=== PATIENT | male | born 1965 | race Hispanic/Latino ===

== ENCOUNTER 2018-10-23 09:36 | Inpatient (IN) | payer SELFPAY ==
[2018-10-23 10:19] LABS: #Basophils 0.1 thou/uL (0.0-0.2); #Eosinphils 0.2 thou/uL (0.0-0.7); #Lymphocytes 1.3 thou/uL (1.20-3.40); #Monocytes 0.3 thou/uL (0.11-0.59); #Neutrophils 5.1 thou/uL (1.40-6.50); %Basophils 1.1 % (0.0-1.0); %Eosinophils 2.8 % (0.0-10.0); %Lymphocytes 18.4 % (21.0-51.0); %Monocytes 4.4 % (0.0-10.0); %Neutrophils 73.5 % (42.0-75.0); Hemoglobin 11.7 g/dL (14.0-18.0); Mean Corpuscular HGB CONC 33.2 g/dL (32.0-36.0); Mean Corpuscular Hemoglobin 28.4 pg (27.0-31.0); Mean Corpuscular Volume 85.3 fL (78.0-98.0); Mean Platelet Volume 8.9 fL (7.4-10.4); Platelet Count 344 thou/uL (130-400); RBC Distribution Width 11.5 % (11.5-14.5); Red Blood Cell (RBC) Count 4.12 mill/uL (4.70-6.10)
[2018-10-23 10:43] LABS: ALT (SGPT) 12 U/L (8-55); AST (SGOT) 15 U/L (5-34); Albumin 1.9 g/dL (3.5-5.0); Alkaline Phosphatase 159 U/L (40-150); Anion Gap 9 mmol/L (10-20); BUN (Urea Nitrogen) 59 mg/dL (8.4-25.7); Bilirubin, Total 0.2 mg/dL (0.2-1.2); Calc. Creatinine Clearance 0 mL/min (70-130); Calcium 8.1 mg/dL (7.8-10.44); Carbon Dioxide 25 mmol/L (22-29); Chloride 89 mmol/L (98-107); Estimated GFR-MDRD 18; Lipase 69 U/L (8-78); Potassium 3.4 mmol/L (3.5-5.1); Protein, Total 5.9 g/dL (6.0-8.3); Sodium 120 mmol/L (136-145)
--- NOTE | 2018-10-23 10:44 | RAD ---
PORTABLE CHEST 1 VIEW: Date: 10/23/18 Time: 1010 hours HISTORY: Bilateral feet swelling. FINDINGS: The cardiomediastinum is normal. The lungs are expanded and clear. Bony thorax unremarkable. IMPRESSION: Normal exam. POS: C
[2018-10-23 10:57] LABS: Glucose 822 mg/dL (70-105)
[2018-10-23 11:19] LABS: Base Excess-Venous -2.7 mmol/L (0 (+/- 2.5)); Bicarbonate (HCO3v) 24.1 mmol/L (22.0-29.0); CO2 Tension (PvCO2) 49.3 mmHg (41.0-51.0); Calcium, Ionized 1.11 mmol/L (1.12-1.32); Hemoglobin - Calc 12.4 g/dL (12.0-18.0); O2 Tension (PvO2) 30.4 mmHg (35.0-45.0); Potassium 3.5 mmol/L (3.4-4.7); T. Carbon Dioxide 25.6 mmol/L (1.0-85.0); pH (Venous) 7.298 (7.35-7.45); vO2 Saturation-calc 50.9 % (94-98)
[2018-10-23] MEDS ORDERED: HUMULIN R 100 UNITS in Sodium Chloride 0.9% 100 ML IVPB SCH ×2 (11:45→12:15)
[2018-10-23] MEDS ORDERED: Ondansetron ODT 4 MG TAB PO PRN (12:06)
[2018-10-23] MEDS ORDERED: Senokot S 8.6-50 MG TAB PO PRN (12:06)
[2018-10-23] MEDS ORDERED: CCU Electrolyte Replacement 1 EACH IVPB ONE (12:06)
[2018-10-23] MEDS ORDERED: Guaifenesin DM 100-10/5 ML UDCUP PO PRN (12:06)
[2018-10-23] MEDS ORDERED: Sodium Chloride 0.9% 1,000 ML IV PRN ×4 (12:06)
[2018-10-23] MEDS ORDERED: Dextrose 5 %-0.45 % NaCl 1,000 ML IV PRN (12:06)
[2018-10-23] MEDS ORDERED: Acetaminophen 325 MG TAB PO PRN (12:06)
[2018-10-23] MEDS ORDERED: Ondansetron PF 4 MG/2 ML Vial IVP PRN (12:06)
[2018-10-23] MEDS ORDERED: NS 0.9% w/ 20 MEQ KCL 1,000 ML IV PRN ×2 (12:06)
[2018-10-23] MEDS ORDERED: Magnesium Oxide 400 MG TAB PO PRN ×2 (12:55)
[2018-10-23] MEDS ORDERED: CCU ELECTROLYTE REPLACEMENT PROTOCOL FS PRN (12:55)
[2018-10-23] MEDS ORDERED: Potassium Chloride 40 MEQ in Sodium Chloride 0.9% 250 ML 250 ML IVPB PRN (12:55)
[2018-10-23] MEDS ORDERED: Magnesium 2 GM/NS 0.9% 100 ML 2 GM in Premix Bag 1 BAG IVPB PRN (12:55)
[2018-10-23] MEDS ORDERED: Potassium Phosphate 12 MMOL in Sodium Chloride 0.9% 250 ML 250 ML IV PRN (12:55)
[2018-10-23] MEDS ORDERED: Potassium Chloride 40 MEQ in Premix Bag 1 BAG IVPB PRN (12:55)
[2018-10-23] MEDS ORDERED: Potassium Phosphate 15 MMOL in Sodium Chloride 0.9% 250 ML 250 ML IV PRN (12:55)
[2018-10-23] MEDS ORDERED: Potassium Phosphate 9 MMOL in Sodium Chloride 0.9% 100 ML IVPB PRN (12:55)
--- NOTE | 2018-10-23 13:30 | HP ---
REASON FOR ADMISSION: DKA, acute kidney injury, hypoalbuminemia. HISTORY OF PRESENTING ILLNESS: The patient initially came to ER with complaints of lower extremity edema which has been progressively getting worse from last 3 weeks. He was incidentally found to have had serum sugars of 822 and was in DKA. Has no complaints of diarrhea, nausea, or vomiting. No complaints of shortness of breath. Has no chest pain or palpitation. No cough or expectoration. No history of fever. The patient states he has been hospitalized twice here for something similar, but there are no records of the same here. Likely, the patient has another name. Ethiopian translation service was used to communicate with patient. PAST MEDICAL AND SURGICAL HISTORY: Diabetes mellitus from last 11 years, likely type 1, chronic kidney disease, hypertension. He seems to have pulmonary problem, but is unable to say whether it is asthma or COPD. CURRENT MEDICATIONS: 1. Nebivolol with valsartan 5/80 mg daily. 2. Sliding scale insulin. 3. Hydrochlorothiazide 25 mg daily. ALLERGIES: NO KNOWN DRUG ALLERGIES. PERSONAL HISTORY: Does not abuse alcohol or drugs. No history of smoking. FAMILY HISTORY: Mother at the age of 32. He does not know the exact cause , but she had severe pain secondary to something that he is not aware of. Father of a freak accident with trauma at the age of 35 years. The patient is from [facility] and his is in his home country. He is currently living with his friends here. CODE STATUS: Full. REVIEW OF SYSTEMS: CONSTITUTIONAL: Negative for weight loss or gain, ability to conduct usual activities. SKIN: Negative for rash, itching. EYES: Negative for double vision, pain. ENT/MOUTH: Negative for nose bleeding, neck stiffness, pain, tenderness. CARDIOVASCULAR: Negative for palpitations, dyspnea on exertion, orthopnea. RESPIRATORY: Negative for shortness of breath, wheezing, cough, hemoptysis, fever or night sweats. GASTROINTESTINAL: Negative for poor appetite, abdominal pain, heartburn, nausea , vomiting, constipation, or diarrhea. GENITOURINARY: Negative for urgency, frequency, dysuria, nocturia. MUSCULOSKELETAL: Negative for pain, swelling. NEUROLOGIC/PSYCHIATRIC: Negative for anxiety, depression. ALLERGY/IMMUNOLOGIC: Negative for skin rash, bleeding tendency. PHYSICAL EXAMINATION: GENERAL: The patient is a 52-year-old male, who is currently not in any acute distress. VITAL SIGNS: Blood pressure 136/64, pulse 84 per minute, respiratory rate 18 per minute, temperature 97.6 degrees Fahrenheit, saturating 98% on room air. NECK: Supple. No elevated JVD. HEENT: Eyes; extraocular muscles intact. Pupils reacting to light. Oral cavity, mucous membranes are dry. No exudates or congestion. CARDIOVASCULAR: S1, S2 heard. Regular rhythm. RESPIRATORY: Air entry 1+ bilateral. No rales or rhonchi. ABDOMEN: Soft. Bowel sounds heard. No tenderness, rigidity, or guarding. EXTREMITIES: There is 2+ peripheral edema up to the knees. No calf tenderness. VASCULAR: Peripheral pulses 1+ bilateral. No ischemic ulcerations or gangrene. CENTRAL NERVOUS SYSTEM: No gross focal deficits noted. The patient is alert, awake, and oriented well. PSYCHIATRIC: The patient's mood is euthymic. No hallucinations or delusions. LABORATORY DATA: Chest x-ray done shows no acute cardiopulmonary abnormality. Serum glucose is 822, sodium 122, potassium 3.5, serum bicarb 25, BUN 59, creatinine 3.6, magnesium is 2.3. AST, ALT within normal limits. Alkaline phosphatase is 159, total bilirubin 0.2, albumin is 1.9, globulin is 4.0, lipase is 69, beta-hydroxybutyrate is 0.17. White count of 7, H and H 11 and 35, platelet count 344, with 73% neutrophils. Venous blood gas done shows a pH of 7.29 with bicarb of 24. CLINICAL IMPRESSION AND PLAN: The patient will be admitted to [facility] for mild diabetic ketoacidosis. He will be on diabetic ketoacidosis protocol. He is currently started on IV insulin and we will titrate this based on the protocol. The patient likely has acute kidney injury on top of his chronic kidney disease. Also, he has albumin/globulin ratio reversed. He is not aware of any autoimmune disease or infectious disease that he has. We will obtain acute hepatitis panel, HIV 1 and 2. Ultrasound kidneys. AMARILYS with reflex, C3, C4 levels and SPEP and UPEP. A Nephrology consultation with Dr. Carl Lopez, will be requested. Job ID: [id number] [facility]
[2018-10-23 13:41] LABS: Anion Gap 16 mmol/L (10-20); BUN (Urea Nitrogen) 57 mg/dL (8.4-25.7); Calc. Creatinine Clearance 0 mL/min (70-130); Calcium 7.8 mg/dL (7.8-10.44); Carbon Dioxide 15 mmol/L (22-29); Chloride 95 mmol/L (98-107); Estimated GFR-MDRD 19; Potassium 3.7 mmol/L (3.5-5.1); Sodium 122 mmol/L (136-145)
[2018-10-23 13:46] LABS: Glucose 743 mg/dL (70-105)
[2018-10-23 14:14] LABS: HBCM Index 0.05 S/CO (0-0.79); HBSAg Index 0.24 S/CO (0-0.99); HIV (1/2) Antibody/Antigen Non-Reactive (NonReactive); HIV 1/2 INDEX 0.05 S/CO (<1.00); Hep A IgM AB Non-Reactive (NonReactive); Hep A IgM S/CO 0.11 S/CO (0-0.79); Hep B Surf Ag Non-Reactive S/CO (NonReactive); Hep C IgG Ab Non-Reactive (NonReactive); Hep C Index 0.06 S/CO (0-0.79); Hepatitis B Core IgM Abs Non-Reactive (NonReactive)
--- NOTE | 2018-10-23 14:27 | ULT ---
BILATERAL RENAL ULTRASOUND COMPLETE: History: Acute kidney insufficiency. Chronic kidney disease. FINDINGS: Right kidney measures 11.4 x 6.1 x 5.9 cm. Left kidney measures 10.2 x 6.2 x 5.8 cm. There is no renal hydronephrosis. The urinary bladder appears unremarkable. IMPRESSION: Unremarkable bilateral renal ultrasound. POS: [facility]
[2018-10-23 17:08] LABS: Anion Gap 15 mmol/L (10-20); BUN (Urea Nitrogen) 56 mg/dL (8.4-25.7); Calc. Creatinine Clearance 0 mL/min (70-130); Calcium 8.1 mg/dL (7.8-10.44); Carbon Dioxide 19 mmol/L (22-29); Chloride 100 mmol/L (98-107); Estimated GFR-MDRD 21; Glucose 319 mg/dL (70-105); Potassium 3.5 mmol/L (3.5-5.1); Sodium 130 mmol/L (136-145)
[2018-10-23] MEDS: D5 1/2 NS w/20 mEq KCL 1,000 ML IV PRN ×2 (18:20→21:02)
[2018-10-23 18:37] VITALS: BMI 23.2
[2018-10-23 20:53] LABS: Anion Gap 12 mmol/L (10-20); BUN (Urea Nitrogen) 52 mg/dL (8.4-25.7); Calc. Creatinine Clearance 32 mL/min (70-130); Calcium 7.7 mg/dL (7.8-10.44); Carbon Dioxide 21 mmol/L (22-29); Chloride 102 mmol/L (98-107); Estimated GFR-MDRD 24; Glucose 131 mg/dL (70-105); Sodium 132 mmol/L (136-145)
[2018-10-23 22:31] LABS: Creatinine, Urine 36.65 mg/dL (63-166)
[2018-10-24] MEDS: Potassium Chloride 20 MEQ TAB PO PRN ×2 (00:59→05:16)
[2018-10-24] MEDS: D5 1/2 NS w/20 mEq KCL 1,000 ML IV PRN ×3 (01:01→09:24)
--- NOTE | 2018-10-24 01:12 | CON ---
DATE OF CONSULTATION: CONSULTING PHYSICIAN: Carl Lopez MD REQUESTING PHYSICIAN: Erin Spivey MD REASON FOR CONSULTATION: Acute on chronic kidney disease. IMPRESSION: 1. Acute on chronic kidney disease. This is likely in the context of intravascular depletion due to diabetic ketoacidosis on a baseline. 2. 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 3. Diabetic ketoacidosis. PLAN: 1. We will rehydrate this patient based on DKA protocol. 2. Renally dose all medications and avoid potentially nephrotoxic agents. 3. We will get spot urine protein and creatinine to evaluate the degree of proteinuria in this patient. 4. Hyponatremia is likely pseudohyponatremia in the context of severe hyperglycemia. 5. Further management will be dependent on the clinical course. No emergent indication at this point for renal replacement therapy. HISTORY OF PRESENT ILLNESS: A 52-year-old gentleman with moderately advanced chronic kidney disease, diabetes mellitus, query the adequacy of treatment, who presented here with complaint of lower extremity edema which has been getting worse over the past 3 weeks. The patient, however, seems to have been feeling ill for the past 3 to 4 months. Denies any nausea, vomiting, or diarrhea. No shortness of breath. On presentation, the patient was noted with severely elevated blood sugar of above 700 with metabolic acidosis, but no hyperkalemia and elevated creatinine. As a result of these findings, decision was taken to involve Renal in the management of this case. PAST MEDICAL HISTORY: Significant for diabetes, hypertension, advanced chronic kidney disease likely stage 3/stage 4. ALLERGIES: NO KNOWN DRUG ALLERGIES. FAMILY HISTORY: No family history of kidney disease. SOCIAL HISTORY: Remote alcohol use, but no tobacco or illicit drug use. REVIEW OF SYSTEMS: As documented in the body of history. All the other systems were reviewed and found not to be significantly related to presenting illness. LABORATORY INVESTIGATION: Significant for sodium 122, creatinine 3.36 with a BUN of 57, bicarb of 15. PHYSICAL EXAMINATION: GENERAL: The patient was found not to be in any obvious distress, hemodynamically stable. HEENT: Unremarkable. Moist oral mucosa. NECK: Supple. No conjunctival injection or icterus. CARDIOVASCULAR SYSTEM: First and second heart sounds were heard. RESPIRATORY SYSTEM: Clear to auscultation. DIGESTIVE SYSTEM: Revealed a benign abdomen with positive bowel sounds. EXTREMITIES: No peripheral edema. SKIN: No new gross rash. LYMPHATICS: No peripheral lymphadenopathy. EXTREMITIES: Showed 2+ bilateral lower extremity edema. NEUROLOGIC: Alert and oriented. No lateralizing sign. SUMMARY: A 52-year-old gentleman with advanced chronic kidney disease in the context of likely diabetic nephropathy, who presented here with severely elevated blood sugar and diabetic ketoacidosis. Thank you for this consultation. We will follow with you. Job ID: [id number]
[2018-10-24 05:09] LABS: Anion Gap 8 mmol/L (10-20); BUN (Urea Nitrogen) 48 mg/dL (8.4-25.7); Calc. Creatinine Clearance 33 mL/min (70-130); Calcium 7.6 mg/dL (7.8-10.44); Carbon Dioxide 18 mmol/L (22-29); Chloride 100 mmol/L (98-107); Estimated GFR-MDRD 25; Glucose 161 mg/dL (70-105); Phosphorus 3.4 mg/dL (2.3-4.7); Sodium 123 mmol/L (136-145)
[2018-10-24 05:10] LABS: Potassium 2.9 mmol/L (3.5-5.1)
[2018-10-24] MEDS: Enoxaparin Sodium 30 MG/0.3 ML SYRINGE SC SCH (09:24)
[2018-10-24] MEDS ORDERED: Dextrose 50% Abboject 50 ML SYRINGE SLOW IVP PRN (10:01)
[2018-10-24] MEDS ORDERED: Dextrose 5% in Water 1,000 ML IV PRN (10:01)
[2018-10-24] MEDS ORDERED: Insulin Glargine 20 UNITS in Pre-Filled Syringe 1 EACH SC SCH (10:15)
[2018-10-24 10:39] LABS: Anion Gap 10 mmol/L (10-20); BUN (Urea Nitrogen) 45 mg/dL (8.4-25.7); Calc. Creatinine Clearance 35 mL/min (70-130); Calcium 7.6 mg/dL (7.8-10.44); Carbon Dioxide 19 mmol/L (22-29); Chloride 103 mmol/L (98-107); Estimated GFR-MDRD 27; Glucose 284 mg/dL (70-105); Sodium 128 mmol/L (136-145)
[2018-10-24 10:42] LABS: Cardiac Risk 7.5 (Less than 4.5)
--- NOTE | 2018-10-24 11:14 | PDOC.PN ---
- Subjective Encounter Start Date: 10/24/18 Encounter Start Time: 11:00 Subjective: feels better, no sob or abd pain -: is watching tv - Objective Resuscitation Status - Order Detail: 10/23/18 12:02 Resuscitation Status Routine Resuscitation Status: FULL: Full Resuscitation MAR Reviewed: Yes Vital Signs & Weight: Vital Signs (12 hours) Temp Pulse Resp BP Pulse Ox 10/24/18 08:00 100 10/24/18 07:19 176/92 H 10/24/18 07:16 97.6 F 73 16 100 10/24/18 04:00 98.0 F 76 16 143/73 H 100 10/24/18 00:00 98.1 F 76 18 157/85 H 100 Weight Weight 162 lb 6.4 oz I&O: 10/23/18 10/24/18 10/25/18 06:59 06:59 06:59 Intake Total 3449 1552 Output Total 2100 500 Balance 1349 1052 Result Diagrams: 10/23/18 10:08 10/24/18 09:36 Additional Labs: Accuchecks 10/24/18 10/24/18 10/24/18 09:53 09:00 08:00 POC Glucose 280 H 282 H 180 H 10/24/18 10/24/18 10/24/18 07:07 06:11 05:10 POC Glucose 147 H 138 H 149 H 10/24/18 10/24/18 10/24/18 04:11 03:12 02:06 POC Glucose 165 H 201 H 242 H 10/24/18 10/24/18 10/23/18 00:59 00:08 23:09 POC Glucose 247 H 244 H 217 H 10/23/18 10/23/18 10/23/18 22:11 21:02 20:03 POC Glucose 189 H 124 H 127 H 10/23/18 10/23/18 10/23/18 19:21 18:04 17:23 POC Glucose 138 H 178 H 229 H 10/23/18 10/23/18 15:20 14:07 POC Glucose 528 H Greater than 550 H* Phys Exam - Physical Examination HEENT: PERRLA, moist MMs Neck: no JVD, supple Respiratory: no wheezing, no rales Cardiovascular: RRR, no significant murmur Gastrointestinal: soft, non-tender, positive bowel sounds Musculoskeletal: pulses present, edema present Neurological: non-focal, moves all 4 limbs Psychiatric: normal affect, A&O x 3 Dx/Plan (1) DKA (diabetic ketoacidosis) Code(s): E13.10 - OTH DIABETES MELLITUS WITH KETOACIDOSIS WITHOUT COMA Status : Acute Qualifiers: Diabetes mellitus type: type 2 Diabetes mellitus complication detail: without coma Qualified Code(s): E11.10 - Type 2 diabetes mellitus with ketoacidosis without coma (2) HTN (hypertension) Code(s): I10 - ESSENTIAL (PRIMARY) HYPERTENSION Status: Chronic Qualifiers: Hypertension type: essential hypertension Qualified Code(s): I10 - Essential (primary) hypertension (3) SANAZ (acute kidney injury) Code(s): N17.9 - ACUTE KIDNEY FAILURE, UNSPECIFIED Status: Acute (4) Hypoalbuminemia Code(s): E88.09 - OTH DISORDERS OF PLASMA-PROTEIN METABOLISM, NEC Status: Acute Comment: sec to kidney disease, eats healthy amount of meat (5) Hyponatremia Code(s): E87.1 - HYPO-OSMOLALITY AND HYPONATREMIA Status: Acute - Plan dc iv insulin -: lantus bid, bethany hose has not been placed on him yet -: further w/u of renal disease per nephro adv -: replace electrolytes -: add lipitor and tricor * . Review of Systems - Medications/Allergies Allergies/Adverse Reactions: Allergies Allergy/AdvReac Type Severity Reaction Status Date / Time No Known Allergies Allergy Unverified 10/23/18 11:40 Medications: Current Medications Acetaminophen (Tylenol) 650 mg PO Q4H PRN PRN Reason: Headache/Fever/Mild Pain (1-3) Atorvastatin Calcium (Lipitor) 20 mg PO HS JOSAFAT Dextrose/Water (Dextrose 50%) 25 gm SLOW IVP PRN PRN PRN Reason: Hypoglycemia Enoxaparin Sodium (Lovenox) 30 mg SC 0900 JOSAFAT Last Admin: 10/24/18 09:24 Dose: 30 mg Fenofibrate (Tricor) 48 mg PO DAILY JOSAFAT Glucagon (Glucagon) 1 mg IM PRN PRN PRN Reason: Hypoglycemia Guaifenesin/Dextromethorphan (Robitussin Dm) 15 ml PO Q4H PRN PRN Reason: Cough Dextrose/Water (D5w) 1,000 mls @ 0 mls/hr IV .Q0M PRN PRN Reason: Hypoglycemia Insulin Glargine 10 units/ (Miscellaneous Medication) 0.1 mls @ 0 mls/hr SC BID [facility] Influenza Virus Vaccine Quadrival (Fluzone Quad [id number] Syringe) 0.5 ml IM .ONCE ONE Stop: 10/24/18 21:01 Insulin Human Lispro (Humalog) 0 units SC .MODERATE SLIDING SC PRN PRN Reason: Moderate Correctional Scale Insulin Human Lispro (Humalog) 0 units SC .BEDTIME SLIDING SC PRN PRN Reason: Bedtime Correctional Scale Nebivolol (Bystolic) 5 mg PO DAILY [facility] Ondansetron HCl (Zofran Odt) 4 mg PO Q6H PRN PRN Reason: Nausea/Vomiting Ondansetron HCl (Zofran) 4 mg IVP Q6H PRN PRN Reason: Nausea/Vomiting Senna/Docusate Sodium (Senokot S) 2 tab PO BID PRN PRN Reason: Constipation
[2018-10-24] MEDS: HumaLOG 300 UNITS/3 ML VIAL SC PRN ×2 (12:23→21:23)
[2018-10-24 16:36] LABS: ANA Symphony (Qualitative) Negative (Negative); ANA Symphony (Quantitative) 0.1 Ratio (< 0.7 Negative); dsDNA IgG Antibody 0.5 IU/mL (<10 Negative)
--- NOTE | 2018-10-24 20:41 | PRG ---
DATE OF SERVICE: 10/24/2018 SUBJECTIVE: The patient is seen and examined. OBJECTIVE: VITAL SIGNS: Noted with the following vital signs; blood pressure 158/90, pulse of 82, respiratory rate of 18. HEENT: Unremarkable. Moist oral mucosa. NECK: Supple. No conjunctival injection or icterus. CARDIOVASCULAR SYSTEM: First and second heart sounds were heard. RESPIRATORY SYSTEM: Clear to auscultation. DIGESTIVE SYSTEM: Revealed a benign abdomen. EXTREMITIES: Showed some peripheral edema. LABORATORY INVESTIGATION: Showed a creatinine down to 2.54, BUN of 45, sodium 128. Triglyceride 276 and cholesterol 285. IMPRESSION: 1. Hyponatremia, partly pseudohyponatremia in the context of hypertriglyceridemia and hyperglycemia. 2. Diabetic nephropathy with nephrotic range proteinuria as evidenced by urine studies. 3. Metabolic acidosis. PLAN: 1. The patient to continue with current renal supportive measures. 2. Outpatient Nephrology followup strongly recommended. 3. Further management to be dependent on the clinical course. Please renally dose all medications and avoid potentially nephrotoxic agents. Job ID: [id number]
[2018-10-24] MEDS ORDERED: Insulin Glargine 10 UNITS in Pre-Filled Syringe 1 EACH SC SCH (21:00)
[2018-10-24] MEDS: Atorvastatin Calcium 20 MG TAB PO SCH (21:23)
[2018-10-25 05:20] LABS: Anion Gap 11 mmol/L (10-20); BUN (Urea Nitrogen) 43 mg/dL (8.4-25.7); Calc. Creatinine Clearance 32 mL/min (70-130); Calcium 7.8 mg/dL (7.8-10.44); Carbon Dioxide 17 mmol/L (22-29); Chloride 107 mmol/L (98-107); Estimated GFR-MDRD 24; Glucose 215 mg/dL (70-105); Potassium 3.6 mmol/L (3.5-5.1); Sodium 131 mmol/L (136-145)
[2018-10-25] MEDS: HumaLOG 300 UNITS/3 ML VIAL SC PRN ×2 (06:35→11:28)
[2018-10-25] MEDS: Enoxaparin Sodium 30 MG/0.3 ML SYRINGE SC SCH (09:22)
[2018-10-25] MEDS: Nebivolol HCl 5 MG TAB PO SCH (09:23)
[2018-10-25] MEDS: Fenofibrate 48 MG TAB PO SCH (09:23)
[2018-10-25] MEDS: Insulin Glargine 15 UNITS in Pre-Filled Syringe 1 EACH SC SCH ×2 (09:23→20:16)
--- NOTE | 2018-10-25 12:11 | PDOC.PN ---
- Subjective Encounter Start Date: 10/25/18 Encounter Start Time: 07:45 Subjective: awake, no sob, feels better -: is watching tv -: wearing bethany hose - Objective Resuscitation Status - Order Detail: 10/23/18 12:02 Resuscitation Status Routine Resuscitation Status: FULL: Full Resuscitation MAR Reviewed: Yes Vital Signs & Weight: Vital Signs (12 hours) Temp Pulse Ox 10/25/18 08:44 98.8 F 98 10/25/18 08:00 98 Weight Weight 165 lb 6.4 oz Most Recent Monitor Data Heart Rate from ECG 82 NIBP 155/81 NIBP BP-Mean 105 Respiration from ECG 13 I&O: 10/24/18 10/25/18 10/26/18 06:59 06:59 06:59 Intake Total 3449 3112 Output Total 2100 2575 Balance 1349 537 Result Diagrams: 10/23/18 10:08 10/25/18 04:45 Additional Labs: Accuchecks 10/25/18 10/25/18 10/24/18 10:34 06:33 21:22 POC Glucose 284 H 185 H 299 H 10/24/18 10/24/18 16:40 12:01 POC Glucose 157 H 240 H Phys Exam - Physical Examination HEENT: PERRLA, moist MMs Neck: no JVD, supple Respiratory: no wheezing, no rales Cardiovascular: RRR, no significant murmur Gastrointestinal: soft, non-tender, positive bowel sounds Musculoskeletal: no edema, pulses present Neurological: non-focal, moves all 4 limbs Psychiatric: normal affect, A&O x 3 Dx/Plan (1) DKA (diabetic ketoacidosis) Code(s): E13.10 - OTH DIABETES MELLITUS WITH KETOACIDOSIS WITHOUT COMA Status : Resolved Qualifiers: Diabetes mellitus type: type 2 Diabetes mellitus complication detail: without coma Qualified Code(s): E11.10 - Type 2 diabetes mellitus with ketoacidosis without coma (2) HTN (hypertension) Code(s): I10 - ESSENTIAL (PRIMARY) HYPERTENSION Status: Chronic Qualifiers: Hypertension type: essential hypertension Qualified Code(s): I10 - Essential (primary) hypertension (3) SANAZ (acute kidney injury) Code(s): N17.9 - ACUTE KIDNEY FAILURE, UNSPECIFIED Status: Acute (4) Hypoalbuminemia Code(s): E88.09 - OTH DISORDERS OF PLASMA-PROTEIN METABOLISM, NEC Status: Acute Comment: sec to kidney disease, eats healthy amount of meat (5) Hyponatremia Code(s): E87.1 - HYPO-OSMOLALITY AND HYPONATREMIA Status: Acute (6) DM type 1 (diabetes mellitus, type 1) Status: Chronic Qualifiers: Diabetes mellitus complication status: with kidney complications Diabetes mellitus complication detail: with chronic kidney disease Chronic kidney disease stage: stage 3 (moderate) Qualified Code(s): E10.22 - Type 1 diabetes mellitus with diabetic chronic kidney disease; N18.3 - Chronic kidney disease, stage 3 (moderate) - Plan is on lantus 15 u bid with coverage -: likely is type 1 dm -: nephrology w/u for nephrotic syndrome per renal -: electrolytes are stabilizing -: to amb as tolerated, will med assistance on dc * . Review of Systems - Medications/Allergies Allergies/Adverse Reactions: Allergies Allergy/AdvReac Type Severity Reaction Status Date / Time No Known Allergies Allergy Verified 10/24/18 21:31 Medications: Current Medications Acetaminophen (Tylenol) 650 mg PO Q4H PRN PRN Reason: Headache/Fever/Mild Pain (1-3) Atorvastatin Calcium (Lipitor) 20 mg PO HS [facility] Last Admin: 10/24/18 21:23 Dose: 20 mg Dextrose/Water (Dextrose 50%) 25 gm SLOW IVP PRN PRN PRN Reason: Hypoglycemia Enoxaparin Sodium (Lovenox) 30 mg SC 0900 [facility] Last Admin: 10/25/18 09:22 Dose: 30 mg Fenofibrate (Tricor) 48 mg PO DAILY [facility] Last Admin: 10/25/18 09:23 Dose: 48 mg Glucagon (Glucagon) 1 mg IM PRN PRN PRN Reason: Hypoglycemia Guaifenesin/Dextromethorphan (Robitussin Dm) 15 ml PO Q4H PRN PRN Reason: Cough Dextrose/Water (D5w) 1,000 mls @ 0 mls/hr IV .Q0M PRN PRN Reason: Hypoglycemia Insulin Glargine 15 units/ (Miscellaneous Medication) 0.15 mls @ 0 mls/hr SC BID [facility] Last Admin: 10/25/18 09:23 Dose: 0.15 mls Insulin Human Lispro (Humalog) 0 units SC .MODERATE SLIDING SC PRN PRN Reason: Moderate Correctional Scale Last Admin: 10/25/18 11:28 Dose: 6 unit Insulin Human Lispro (Humalog) 0 units SC .BEDTIME SLIDING SC PRN PRN Reason: Bedtime Correctional Scale Last Admin: 10/24/18 21:23 Dose: 3 unit Nebivolol (Bystolic) 5 mg PO DAILY [facility] Last Admin: 10/25/18 09:23 Dose: 5 mg Ondansetron HCl (Zofran Odt) 4 mg PO Q6H PRN PRN Reason: Nausea/Vomiting Ondansetron HCl (Zofran) 4 mg IVP Q6H PRN PRN Reason: Nausea/Vomiting Senna/Docusate Sodium (Senokot S) 2 tab PO BID PRN PRN Reason: Constipation Sodium Chloride (Flush - Normal Saline) 10 ml IVF Q12HR [facility] Last Admin: 10/25/18 09:23 Dose: 10 ml Sodium Chloride (Flush - Normal Saline) 10 ml IVF PRN PRN PRN Reason: Saline Flush
[2018-10-25] MEDS: Atorvastatin Calcium 20 MG TAB PO SCH (20:16)
--- NOTE | 2018-10-26 01:32 | PRG ---
DATE OF SERVICE: 10/25/2018 OBJECTIVE: VITAL SIGNS: The patient noted with the following vital signs. Blood pressure , pulse of 80, afebrile, and temperature 98.6. HEENT: Unremarkable. CARDIOVASCULAR SYSTEM: First and second heart sounds were heard. RESPIRATORY SYSTEM: Clear to auscultation. DIGESTIVE SYSTEM: Revealed a benign abdomen with positive bowel sounds. EXTREMITIES: Showed 2+ bilateral lower extremity edema. LYMPHATICS: No peripheral lymphadenopathy. LABORATORY INVESTIGATION: Showed sodium of 131, BUN of 43, creatinine 2.79. IMPRESSION: 1. Advanced chronic kidney disease stage 4 in the context of . 2. Diabetic nephropathy with nephrotic range proteinuria. 3. Metabolic acidosis. PLAN: 1. Blood pressure and diabetes control strongly recommended. 2. Renally dose all medications for low GFR. 3. The patient likely to benefit from sodium bicarbonate supplementation or very strict outpatient Nephrology followup strongly recommended status post discharge. 4. Further management will be dependent on the clinical course. Job ID: [id number]
[2018-10-26 05:49] LABS: Anion Gap 11 mmol/L (10-20); BUN (Urea Nitrogen) 41 mg/dL (8.4-25.7); Calc. Creatinine Clearance 32 mL/min (70-130); Calcium 7.7 mg/dL (7.8-10.44); Carbon Dioxide 20 mmol/L (22-29); Chloride 107 mmol/L (98-107); Estimated GFR-MDRD 24; Glucose 80 mg/dL (70-105); Potassium 3.3 mmol/L (3.5-5.1); Sodium 135 mmol/L (136-145)
[2018-10-26] MEDS ORDERED: Lisinopril/Hydrochlorothiazide 20/25 mg Tablet PO SCH (09:00)
[2018-10-26] MEDS ORDERED: NEBIVOLOL HCL PO SCH (09:00)
[2018-10-26] MEDS ORDERED: VALSARTAN PO SCH (09:00)
[2018-10-26] MEDS: Valsartan 80 MG TAB PO SCH (09:34)
[2018-10-26] MEDS: Fenofibrate 48 MG TAB PO SCH (09:34)
[2018-10-26] MEDS: Enoxaparin Sodium 30 MG/0.3 ML SYRINGE SC SCH (09:34)
[2018-10-26] MEDS: Insulin Glargine 15 UNITS in Pre-Filled Syringe 1 EACH SC SCH ×2 (09:34→22:48)
[2018-10-26] MEDS: Hydrochlorothiazide 25 MG TAB PO SCH (09:34)
[2018-10-26] MEDS: Nebivolol HCl 5 MG TAB PO SCH ×2 (09:34→09:55)
[2018-10-26] MEDS: HumaLOG 300 UNITS/3 ML VIAL SC PRN ×3 (10:29→22:48)
--- NOTE | 2018-10-26 13:10 | PDOC.PN ---
- Subjective Encounter Start Date: 10/26/18 Encounter Start Time: 13:07 Subjective: feels well. eager to go home. no new complaints - Objective Resuscitation Status - Order Detail: 10/23/18 12:02 Resuscitation Status Routine Resuscitation Status: FULL: Full Resuscitation MAR Reviewed: Yes Vital Signs & Weight: Vital Signs (12 hours) Temp Pulse Resp BP Pulse Ox 10/26/18 08:00 98 10/26/18 04:00 98.7 F 77 14 150/73 H 97 Weight Weight 165 lb 6.4 oz Most Recent Monitor Data Heart Rate from ECG 81 NIBP 153/83 NIBP BP-Mean 106 Respiration from ECG 19 I&O: 10/25/18 10/26/18 10/27/18 06:59 06:59 06:59 Intake Total 3112 650 Output Total 2575 1150 Balance 537 -500 Result Diagrams: 10/23/18 10:08 10/26/18 05:08 Additional Labs: Accuchecks 10/26/18 10/26/18 10/26/18 11:19 10:20 06:25 POC Glucose 164 H 181 H 77 10/25/18 10/25/18 20:17 16:41 POC Glucose 204 H 135 H Microbiology 10/23/18 21:00 Urine voided Urine Culture - Final NO GROWTH AT 36 HOURS Laboratory Tests 10/23/18 10/23/18 10/23/18 10:08 13:07 13:07 Creatinine 3.61 H 3.36 H Triglycerides Cholesterol LDL Cholesterol, Calc AMARILYS Screen Negative AMARILYS Scrn Qualitative Negative Complement C3 80.00 L Complement C4 14.00 L Hepatitis A IgM Ab Hep Bs Antigen Hep B Core IgM Ab Hepatitis C Antibody HIV 1&2 Antigen & Ab 10/23/18 10/24/18 10/24/18 13:07 09:36 09:36 Creatinine 2.54 H Triglycerides 276 H Cholesterol 285 H LDL Cholesterol, Calc 192 AMARILYS Screen AMARILYS Scrn Qualitative Complement C3 Complement C4 Hepatitis A IgM Ab Non-Reactive Hep Bs Antigen Non-Reactive Hep B Core IgM Ab Non-Reactive Hepatitis C Antibody Non-Reactive HIV 1&2 Antigen & Ab Non-Reactive 10/26/18 05:08 Creatinine 2.76 H Triglycerides Cholesterol LDL Cholesterol, Calc AMARILYS Screen AMARILYS Scrn Qualitative Complement C3 Complement C4 Hepatitis A IgM Ab Hep Bs Antigen Hep B Core IgM Ab Hepatitis C Antibody HIV 1&2 Antigen & Ab Phys Exam - Physical Examination Constitutional: NAD HEENT: PERRLA, moist MMs, sclera anicteric, oral pharynx no lesions Neck: no nodes, no JVD, supple, full ROM Respiratory: no wheezing, no rales, no rhonchi, clear to auscultation bilateral Cardiovascular: RRR, no significant murmur, no rub Gastrointestinal: soft, non-tender, no distention, positive bowel sounds Musculoskeletal: no edema, pulses present Neurological: non-focal, normal sensation, moves all 4 limbs Psychiatric: normal affect, A&O x 3 Dx/Plan (1) SANAZ (acute kidney injury) Code(s): N17.9 - ACUTE KIDNEY FAILURE, UNSPECIFIED Status: Acute Comment: suspect CKD given proteinuria and low complement. Hepatitis studies negative.AMARILYS negative.Suspect Heavy chain or MPGN (2) Hyponatremia Code(s): E87.1 - HYPO-OSMOLALITY AND HYPONATREMIA Status: Acute (3) DM type 1 (diabetes mellitus, type 1) Status: Chronic Qualifiers: Diabetes mellitus complication status: with kidney complications Diabetes mellitus complication detail: with chronic kidney disease Chronic kidney disease stage: stage 3 (moderate) Qualified Code(s): E10.22 - Type 1 diabetes mellitus with diabetic chronic kidney disease; N18.3 - Chronic kidney disease, stage 3 (moderate) (4) HTN (hypertension) Code(s): I10 - ESSENTIAL (PRIMARY) HYPERTENSION Status: Chronic Qualifiers: Hypertension type: essential hypertension Qualified Code(s): I10 - Essential (primary) hypertension (5) DKA (diabetic ketoacidosis) Code(s): E13.10 - OTH DIABETES MELLITUS WITH KETOACIDOSIS WITHOUT COMA Status : Resolved Qualifiers: Diabetes mellitus type: type 2 Diabetes mellitus complication detail: without coma Qualified Code(s): E11.10 - Type 2 diabetes mellitus with ketoacidosis without coma (6) Hypoalbuminemia Code(s): E88.09 - OTH DISORDERS OF PLASMA-PROTEIN METABOLISM, NEC Status: Chronic Comment: sec to kidney disease, eats healthy amount of meat - Plan DVT proph w/SCDs Clinically better. -: adjust BP meds and monitor ON -: if BP and Blood sugar stable.DC home in am -: F/U OP w nephro for further w/u for CKD -: pt educated. * . labs in am Review of Systems - Review of Systems Constitutional: negative: fever, chills, sweats, weakness, malaise, other ENT: negative: Ear Pain, Ear Discharge, Nose Pain, Nose Discharge, Nose Congestion, Mouth Pain, Mouth Swelling, Throat Pain, Throat Swelling, Other Respiratory: negative: Cough, Dry, Shortness of Breath, Hemoptysis, SOB with Excertion, Pleuritic Pain, Sputum, Wheezing Cardiovascular: negative: chest pain, palpitations, orthopnea, paroxysmal nocturnal dyspnea, edema, light headedness, other Gastrointestinal: negative: Nausea, Vomiting, Abdominal Pain, Diarrhea, Constipation, Melena, Hematochezia, Other Genitourinary: negative: Dysuria, Frequency, Incontinence, Hematuria, Retention , Other Musculoskeletal: negative: Neck Pain, Shoulder Pain, Arm Pain, Back Pain, Hand Pain, Leg Pain, Foot Pain, Other Neurological: negative: Weakness, Numbness, Incoordination, Change in Speech, Confusion, Seizures, Other - Medications/Allergies Allergies/Adverse Reactions: Allergies Allergy/AdvReac Type Severity Reaction Status Date / Time No Known Allergies Allergy Verified 10/24/18 21:31 Medications: Current Medications Acetaminophen (Tylenol) 650 mg PO Q4H PRN PRN Reason: Headache/Fever/Mild Pain (1-3) Atorvastatin Calcium (Lipitor) 20 mg PO HS [facility] Last Admin: 10/25/18 20:16 Dose: 20 mg Dextrose/Water (Dextrose 50%) 25 gm SLOW IVP PRN PRN PRN Reason: Hypoglycemia Enoxaparin Sodium (Lovenox) 30 mg SC 0900 [facility] Last Admin: 10/26/18 09:34 Dose: 30 mg Fenofibrate (Tricor) 48 mg PO DAILY [facility] Last Admin: 10/26/18 09:34 Dose: 48 mg Glucagon (Glucagon) 1 mg IM PRN PRN PRN Reason: Hypoglycemia Guaifenesin/Dextromethorphan (Robitussin Dm) 15 ml PO Q4H PRN PRN Reason: Cough Hydrochlorothiazide (Hydrochlorothiazide) 25 mg PO DAILY [facility] Last Admin: 10/26/18 09:34 Dose: 25 mg Dextrose/Water (D5w) 1,000 mls @ 0 mls/hr IV .Q0M PRN PRN Reason: Hypoglycemia Insulin Glargine 15 units/ (Miscellaneous Medication) 0.15 mls @ 0 mls/hr SC BID [facility] Last Admin: 10/26/18 09:34 Dose: 0.15 mls Insulin Human Lispro (Humalog) 0 units SC .MODERATE SLIDING SC PRN PRN Reason: Moderate Correctional Scale Last Admin: 10/26/18 10:29 Dose: 2 unit Insulin Human Lispro (Humalog) 0 units SC .BEDTIME SLIDING SC PRN PRN Reason: Bedtime Correctional Scale Last Admin: 10/24/18 21:23 Dose: 3 unit Nebivolol (Bystolic) 5 mg PO DAILY [facility] Last Admin: 10/26/18 09:34 Dose: 5 mg Ondansetron HCl (Zofran Odt) 4 mg PO Q6H PRN PRN Reason: Nausea/Vomiting Ondansetron HCl (Zofran) 4 mg IVP Q6H PRN PRN Reason: Nausea/Vomiting Senna/Docusate Sodium (Senokot S) 2 tab PO BID PRN PRN Reason: Constipation Sodium Chloride (Flush - Normal Saline) 10 ml IVF Q12HR [facility] Last Admin: 10/26/18 10:29 Dose: 10 ml Sodium Chloride (Flush - Normal Saline) 10 ml IVF PRN PRN PRN Reason: Saline Flush Valsartan (Diovan) 80 mg PO DAILY [facility] Last Admin: 10/26/18 09:34 Dose: 80 mg
[2018-10-26 14:15] LABS: Albumin-Ur 36.1 % (.); Alpha 1 - Ur 8.7 % (.); Alpha 2 - Ur 13.2 % (.); Beta-Ur 21.6 % (.); Gamma-Ur 20.4 % (.); M-Spike,% Not Observed % (Not Observed)
[2018-10-26 16:12] LABS: A/G Ratio 0.4 (0.7-1.7); Albumin 1.4 g/dL (2.9-4.4); Alpha 1 0.2 g/dL (0.0-0.4); Alpha 2 1.3 g/dL (0.4-1.0); Beta 1.2 g/dL (0.7-1.3); Gamma 0.7 g/dL (0.4-1.8); Globulin, Total 3.4 g/dL (2.2-3.9); M-Spike Not Observed g/dL (Not Observed)
[2018-10-26] MEDS: Atorvastatin Calcium 20 MG TAB PO SCH (22:48)
[2018-10-27] MEDS: HumaLOG 300 UNITS/3 ML VIAL SC PRN (06:33)
[2018-10-27 07:39] LABS: Anion Gap 10 mmol/L (10-20); BUN (Urea Nitrogen) 39 mg/dL (8.4-25.7); Calc. Creatinine Clearance 32 mL/min (70-130); Calcium 7.6 mg/dL (7.8-10.44); Carbon Dioxide 23 mmol/L (22-29); Chloride 106 mmol/L (98-107); Estimated GFR-MDRD 23; Glucose 173 mg/dL (70-105); Potassium 3.5 mmol/L (3.5-5.1); Sodium 135 mmol/L (136-145)
[2018-10-27 08:04] VITALS: TEMP 97.7
[2018-10-27] MEDS: Enoxaparin Sodium 30 MG/0.3 ML SYRINGE SC SCH ×2 (08:18→08:22)
[2018-10-27] MEDS: Hydrochlorothiazide 25 MG TAB PO SCH (08:18)
[2018-10-27] MEDS: Valsartan 80 MG TAB PO SCH (08:18)
[2018-10-27] MEDS: Fenofibrate 48 MG TAB PO SCH (08:18)
[2018-10-27] MEDS: Insulin Glargine 15 UNITS in Pre-Filled Syringe 1 EACH SC SCH (08:19)
[2018-10-27] MEDS: Nebivolol HCl 5 MG TAB PO SCH (08:19)
[2018-10-27 11:32] VITALS: BP 138/79
--- NOTE | 2018-10-28 04:20 | DIS ---
DATE OF ADMISSION: 10/23/2018 DATE OF DISCHARGE: 10/27/2018 DISCHARGE DIAGNOSES: 1. Hypertensive urgency, resolved. 2. Diabetic ketoacidosis, resolved. 3. Diabetes mellitus type 1 or type 2, unknown. 4. Essential hypertension. 5. Hyponatremia, resolved. 6. Hypoalbuminemia. DISCHARGE MEDICATIONS: Home medications were resumed as follows nebivolol/valsartan 5/80 mg daily. His insulin glargine was discontinued as the patient is not able to afford it. He was started on insulin 70/30, 20 units three times a day. Resume hydrochlorothiazide 25 mg daily. New medications; Tricor 48 mg daily and Lipitor 20 mg daily. IN-HOUSE CONSULTATION: Nephrology, Dr. Carl Lopez. PROCEDURES DONE IN THE HOSPITAL: Renal ultrasound, which shows no abnormality in the kidneys bilaterally. HISTORY OF PRESENTING ILLNESS: Mr. Penny Whitman is a 52-year-old male with past medical history of hypertension, diabetes mellitus, and chronic kidney disease, who presented to the emergency room with complaints of lower extremity swelling, which has been getting worse for the last 3 weeks. In the emergency room, he was found to be in mild diabetic ketoacidosis, acute kidney injury. His blood sugar was 822 and creatinine of 3.6. He was admitted initially to [facility] with diabetic ketoacidosis protocol and Nephrology was consulted with regard to his acute on chronic kidney insufficiency. Please see admission history and physical for further details. HOSPITAL COURSE: The patient was started on IV fluids and antihypertensives were adjusted. Nephrology saw the patient and Dr. Lopez adjusted his medications as well. Multiple studies were sent to check for possible nephrotic syndrome. He was negative for AMARILYS. He was negative for hepatitis panel and HIV. He did have low complement levels. His urine protein electrophoresis did not have any M spike. His random urine protein was elevated and his random urine creatinine was low. The patient otherwise remained hemodynamically stable in the hospital and his blood pressure stabilized. His kidney function got better. Urine culture was checked and was negative. The patient was given prescription for all of his medications that it seems like he has filled them last in [place]. He reported that he has no primary care physician, so he was instructed to follow up and establish care at either [facility] or [facility]. He was started on insulin 70/30, which is the cheapest form of insulin. [facility] was consulted to help him with a prescription coverage. Dietitian was also consulted for diabetic education. He was found to have high cholesterol and high triglycerides and was started on Lipitor and Tricor, and prescriptions were provided with those as well. He was seen and examined prior to discharge. PHYSICAL EXAMINATION: This morning; VITAL SIGNS: Temperature 97.7, pulse of 77, respirations 16, saturating 99% on room air, and blood pressure 138/79. GENERAL: No acute distress. Awake, alert, and oriented x3. CHEST: Clear to auscultation bilaterally. Rate rhythm is regular. The patient will be discharged once [facility] has delivered his medications. DISCHARGE FOLLOWUP: 1. Primary care physician. 2. Nephrology, Dr. Henry. TIME SPENT: Total time spent in the discharge 32 minutes. Job ID: [id number]
--- NOTE | 2018-10-29 10:00 | PRG ---
DATE OF SERVICE: 10/27/2018 IMPRESSION: 1. Advanced chronic kidney disease, stage 4 in the context of . 2. Diabetic nephropathy with nephrotic range proteinuria. 3. Hypokalemia . PLAN: 1. We will resume . Job ID: [id number]
== END 2018-10-27 16:28 | disposition home or self-care (01) | DRG 638 ==
LOC: ERS 09:36 → ERHOLD 11:54 → IMCU/EMU 17:57 → SJJU 10-26 10:57
PROVIDERS: ADMIT Internal Medicine; ATTEND Internal Medicine
DX: E10.10 Type 1 diabetes mellitus with ketoacidosis without coma (principal); N17.9 Acute kidney failure, unspecified; N18.4 Chronic kidney disease, stage 4 (severe); E87.1 Hypo-osmolality and hyponatremia; E87.2 Acidosis; I12.9 Hypertensive chronic kidney disease with stage 1 through stage 4 chronic kidney disease, or unspecified chronic kidney disease; E88.09 Other disorders of plasma-protein metabolism, not elsewhere classified; E10.22 Type 1 diabetes mellitus with diabetic chronic kidney disease; I16.0 Hypertensive urgency
CPT/HCPCS: 36415; 36416; 71045; 76770; 80048; 80053; 80061; 80074; 82010; 82330; 82570; 82803; 83690; 83735; 83930; 83970; 84100; 84156; 84165; 84166; 84484; 85025; 86038; 86160; 86225; 87086; 87389; 93005; 94760; 96361; 96365; 96366; J1650; J1815; J1825; J7050